=== PATIENT | female | born 1975 | race Caucasian/White ===

== ENCOUNTER 2017-08-06 14:47 | Emergency (ER) | payer BC ==
[~2017-08-06] VITALS: Ht 160 cm; Wt 56.6 kg
[~2017-08-06 14:47] MED LIST: LEVO50TA5 PO; LEVO75TA5 PO; LIOT5TAB3 PO
[2017-08-06] MEDS ORDERED: SODIUM CHLORIDE 0.9% 1,000ML IVBOLUS ONE (15:30)
[2017-08-06] MEDS ORDERED: FAMOTIDINE 20 MG/2 ML IVP ONE (15:30)
[2017-08-06] MEDS ORDERED: SODIUM CHLORIDE FLUSH 10ML SYR IVF ONE (15:30)
[2017-08-06] MEDS ORDERED: ONDANSETRON 2MG/ML, 2ML IVPush ONE ×2 (15:30→19:00)
[2017-08-06 15:31] LABS: HEMATOCRIT 39.4 % (34.6-47.8); HEMOGLOBIN 13.2 g/dL (11.7-16.4); WHITE BLOOD COUNT 6.8 x10^3/uL (3.4-10)
[2017-08-06 15:44] LABS: BLOOD UREA NITROGEN 10 mg/dL (7-18)
[2017-08-06 15:51] LABS: ASPARTATE AMINO TRANSFERASE 12 U/L (15-37)
[2017-08-06] MEDS ORDERED: MORPHINE SULFATE 4 MG/ML, 1ML ONE ×2 (16:14→19:09)
[2017-08-06] MEDS ORDERED: ONDANSETRON 2MG/ML, 2ML ONE ×2 (16:14→19:09)
[2017-08-06] MEDS ORDERED: FAMOTIDINE 20 MG/2 ML ONE (16:15)
[2017-08-06] MEDS: MORPHINE SULFATE 4 MG/ML, 1ML IVPush PRN ×2 (16:31→19:24)
[2017-08-06] MEDS ORDERED: MORPHINE SULFATE 4 MG/ML, 1ML IVPush ONE (19:00)
[2017-08-06 19:23] VITALS: BP 111/72
== END 2017-08-06 19:42 | disposition home or self-care (01) ==
LOC: ED 16:16
DX: T18.2XXA Foreign body in stomach, initial encounter (principal); W45.8XXA Other foreign body or object entering through skin, initial encounter; Y93.89 Activity, other specified; Y92.89 Other specified places as the place of occurrence of the external cause; Y99.8 Other external cause status
CPT/HCPCS: 36415; 74176; 80053; 81003; 83690; 84703; 85025; 96361; 96374; 96375; 96376; 99285; J2405; J7030

== ENCOUNTER 2017-09-09 07:01 | Day surgery (SDC) | payer BC ==
[~2017-09-09] VITALS: Ht 160 cm; Wt 55.2 kg
[~2017-09-09 07:01] MED LIST changes: +BUPIVACAINE/PF 0.5% ONE; +EPINEPHRINE 1 MG/ML, 1ML ONE
[2017-09-09] MEDS ORDERED: LACTATED RINGERS 1,000 ML IV SCH (07:22)
[2017-09-09] MEDS ORDERED: LEVO50TA5 PO (07:46)
[2017-09-09 07:58] VITALS: BP 119/76
[2017-09-09] MEDS ORDERED: MIDAZOLAM 1 MG/ML, 2ML ONE (08:36)
[2017-09-09] MEDS ORDERED: FENTANYL PF 100 MCG/2ML ONE (08:37)
[2017-09-09] MEDS ORDERED: KETOROLAC 30 MG/1 ML ONE (08:50)
[2017-09-09] MEDS ORDERED: ALBUTEROL SULFATE 2.5 MG/3 ML NPPB PRN (09:30)
[2017-09-09] MEDS ORDERED: OXYcodone 5 MG/5 ML ORAL.SOL UDC PO PRN (09:30)
[2017-09-09] MEDS ORDERED: MIDAZOLAM 1 MG/ML, 2ML IV PRN (09:30)
[2017-09-09] MEDS ORDERED: LABETALOL 5MG/ML, 20ML IV PRN (09:30)
[2017-09-09] MEDS ORDERED: HYDROmorphone 1 MG/ML, 1ML IV PRN (09:30)
[2017-09-09] MEDS ORDERED: DIAZEPAM 5 MG/ML, 2ML IVPush PRN (09:30)
[2017-09-09] MEDS ORDERED: FENTANYL PF 100 MCG/2ML IV PRN (09:30)
[2017-09-09] MEDS ORDERED: HYDROcodone/APAP 7.5-325MG/15ML UDC PO PRN (09:30)
[2017-09-09] MEDS ORDERED: PROMETHAZINE 25 MG/ML, 1ML IV PRN (09:30)
[2017-09-09] MEDS ORDERED: METOPROLOL 1 MG/ML, 5ML IV PRN (09:30)
[2017-09-09] MEDS ORDERED: hydrALAzine 20 MG/ML, 1ML IV PRN (09:30)
[2017-09-09] MEDS ORDERED: ACETAMINOPHEN 325 MG TABLET PO PRN (09:30)
[2017-09-09] MEDS ORDERED: ONDANSETRON 2MG/ML, 2ML IVPush PRN (09:30)
[2017-09-09] MEDS ORDERED: EPHEDRINE 50 MG/ML, 1ML IVPush PRN (09:30)
[2017-09-09] MEDS ORDERED: MEPERIDINE/PF 25MG/0.5ML IVPush PRN (09:30)
[2017-09-09] MEDS ORDERED: SUCCINYLCHOLINE 20 MG/ML, 10ML ONE (10:12)
[2017-09-09] MEDS ORDERED: PROPOFOL 10 MG/ML, 20ML ONE (10:12)
[2017-09-09] MEDS ORDERED: ONDANSETRON 2MG/ML, 2ML ONE (10:12)
[2017-09-09] MEDS ORDERED: NEOSTIGMINE 1 MG/ML, 10ML ONE (10:12)
[2017-09-09] MEDS ORDERED: GLYCOPYRROLATE 0.2MG/1ML, 5ML ONE (10:12)
[2017-09-09] MEDS ORDERED: CEFAZOLIN 1,000 MG ONE (10:12)
[2017-09-09] MEDS ORDERED: ROCURONIUM 10 MG/ML,10ML ONE (10:12)
[2017-09-09] MEDS ORDERED: DEXAMETHASONE 4 MG/ML, 1ML ONE (10:12)
[2017-09-09] MEDS ORDERED: PROMETHAZINE 25 MG/ML, 1ML ONE (10:35)
[2017-09-09] MEDS ORDERED: OXYcodone 5 MG/5 ML ORAL.SOL UDC ONE (10:35)
== END 2017-09-09 12:30 ==
LOC: OUT 07:01
PROVIDERS: ATTEND Surgery
DX: K43.2 Incisional hernia without obstruction or gangrene (principal); E03.9 Hypothyroidism, unspecified; Z98.890 Other specified postprocedural states; Z98.51 Tubal ligation status
CPT/HCPCS: 49560; 49568; J0171; J0330; J0690; J1100; J1885; J2250; J2405; J2550; J2704; J2710; J3010; J3490; J7120; C1781